=== PATIENT | female | born 1950 | race Hispanic/Latino ===

== ENCOUNTER 2017-11-14 02:50 | Emergency (ER) | payer BC, OTHER ==
[2017-11-14] MEDS ORDERED: HYDROCODONE/APAP 5/325 MG TAB ONE (03:05)
[2017-11-14] MEDS ORDERED: TETANUS & DIPHTHERIA TOX,ADULT 0.5 ML VIAL ONE (03:06)
--- NOTE | 2017-11-14 05:26 | ER ---
Nurse's Notes [facility] Name: Jessika Rolon Age: 67 yrs Sex: Female : 1950 Arrival Date: 11/14/2017 Time: 02:54 Bed 4 Private MD: Diagnosis: Contusion of right knee;Chest wall contusion Presentation: 11/14 02:54 Presenting complaint: EMS states: they were toned out for report of pt falling in bb driveway denies LOC. Transition of care: patient was not received from another setting of care. Onset of symptoms was November 14, 2017. Initial Sepsis Screen: Does the patient meet any 2 criteria? No. Patient's initial sepsis screen is negative. Does the patient have a suspected source of infection? No. Patient's initial sepsis screen is negative. Care prior to arrival: None. 02:54 Method Of Arrival: EMS: [facility] 02:54 Acuity: ZOLTAN 3 bb Historical: - Allergies: 02:58 Morphine; bb - Home Meds: 02:58 Aspirin Oral [Active]; Lantus Sub-Q [Active]; losartan Oral [Active]; Metformin Oral bb [Active]; sertraline Oral [Active]; Victoza 2-Tien subcutaneous [Active]; glaucoma drops [Active]; - PMHx: 02:58 Diabetes - IDDM; Hypertension; glaucoma; bb - PSHx: 02:58 Cholecystectomy; Hysterectomy; bb - Immunization history:: Adult Immunizations unknown, Last tetanus immunization: unknown. - Social history:: Smoking status: Patient/guardian denies using tobacco, Patient/guardian denies using alcohol, street drugs. - Family history:: not pertinent. - Hospitalizations: : No recent hospitalization is reported. Screenin:43 Abuse screen: Denies threats or abuse. Denies injuries from another. Nutritional tl1 screening: No deficits noted. Tuberculosis screening: No symptoms or risk factors identified. Fall Risk Assessment: 03:40 General: Appears uncomfortable, Behavior is calm, cooperative, appropriate for age. tl1 Pain: Complains of pain in right elbow. Neuro: Level of Consciousness is awake, alert, obeys commands, Oriented to person, place, time, situation. Cardiovascular: Denies chest pain, Capillary refill < 3 seconds Patient's skin is warm and dry. Respiratory: Airway is patent Trachea midline Respiratory effort is even, unlabored, Breath sounds are clear bilaterally. tenderness noted to left side rib cage. GI: Abdomen is non-distended, Bowel sounds present X 4 quads. Abd is soft and non tender X 4 quads. : No signs and/or symptoms were reported regarding the genitourinary system. EENT: No signs and/or symptoms were reported regarding the EENT system. Derm: Wound noted right knee Wound is abrasions noted to right elbow and right knee. Injury Description: Abrasion sustained to right knee. 04:03 Reassessment: Patient and/or family updated on plan of care and expected duration. Pain tl1 level reassessed. Patient is alert, oriented x 3, equal unlabored respirations, skin warm/dry/pink. Respiratory: Airway is patent Trachea midline Respiratory effort is even, unlabored, Respiratory pattern is regular, Breath sounds are clear bilaterally. Vital Signs: 02:58 BP 133 / 85; Pulse 86; Resp 18 S; Temp 97.6(O); Pulse Ox 97% on R/A; Weight 86.18 kg bb (R); Height 5 ft. 9 in. (175.26 cm) (R); Pain 5/10; 03:47 BP 156 / 97; Pulse 91; Resp 19; Pulse Ox 100% on R/A; Pain 4/10; tl1 05:05 BP 153 / 79; Pulse 79; Resp 18; Pulse Ox 99% on R/A; mt 02:58 Body Mass Index 28.06 (86.18 kg, 175.26 cm) bb ED Course: 02:54 Patient arrived in ED. em1 02:54 Elias Josue MD is Attending Physician. rn 02:56 Triage completed. bb 02:58 Arm band placed on Patient placed in an exam room, on a stretcher, on pulse oximetry. bb 02:58 Patient has correct armband on for positive identification. Placed in gown. Bed in low tl1 position. Call light in reach. Side rails up X2. Adult w/ patient. 03:03 Brigitte Nava, RN is Primary Nurse. tl1 03:20 Patient moved to radiology via wheelchair. kw 03:20 X-ray completed. Patient tolerated procedure well. kw 03:20 Patient moved back from radiology. kw 03:20 XRAY Knee RIGHT 3 view In Process Unspecified. EDMS 03:20 XRAY Chest Pa And Lat (2 Views) In Process Unspecified. EDMS 03:43 No provider procedures requiring assistance completed. Patient did not have IV access tl1 during this emergency room visit. 04:02 Wound care: to abrasion, located on right elbow and right knee was cleaned with tl1 Hibiclens, dressed with Neosporin, 4X4s, Kerlix. Administered Medications: 03:08 Drug: [place] 5 mg-325 mg 1 tabs Route: PO; tl1 05:33 Follow up: Response: No adverse reaction; Marked relief of symptoms; Pain is decreased tl1 03:09 Drug: Tetanus-Diphtheria Toxoid Adult 0.5 ml {Disease Management Nurse: [employer]. Exp: tl1 02/06/2020. Lot #: [id number]. } Route: IM; Site: right deltoid; 05:33 Follow up: Response: No adverse reaction; No change in condition tl1 05:33 Drug: Motrin 600 mg Route: PO; tl1 05:40 Follow up: Response: No adverse reaction; Medication administered at discharge. tl1 Outcome: 05:25 Discharge ordered by . rn 05:39 Discharged to home via wheelchair, with family. tl1 05:39 Condition: stable 05:39 Discharge instructions given to patient, family, Instructed on discharge instructions, follow up and referral plans. medication usage, Demonstrated understanding of instructions, follow-up care, medications, wound care, Prescriptions given X 1. 05:40 Patient left the ED. tl1 Signatures: Dispatcher [employer] Smiley Rushing RN RN bb Nieto, Roman, MD MD rn Martinez, Eric 1 Noa Patricia Tonya RN RN tl1 Tia Kaminski ak
--- NOTE | 2017-11-14 05:26 | EDPHYS ---
Physician Documentation [facility] Name: Jessika Rolon Age: 67 yrs Sex: Female : 1950 Arrival Date: 11/14/2017 Time: 02:54 Bed 4 Private MD: ED Physician Elias Josue HPI: 11/14 03:36 This 67 yrs old Female presents to ER via EMS with complaints of chest pain. rn 03:36 The patient or guardian reports chest pain that is located primarily in the anterior rn chest wall. Onset: The symptoms/episode began/occurred just prior to arrival. The pain does not radiate. Associated signs and symptoms: Pertinent negatives: abdominal pain, diaphoresis, headache, lightheadedness, palpitations, shortness of breath, syncope, vomiting. The chest pain is described as sharp. Duration: The patient or guardian reports a single episode. Modifying factors: The symptoms are alleviated by remaining still, the symptoms are aggravated by breathing, deep breath, palpation of area. Severity of pain: At its worst the pain was mild in the emergency department the pain is unchanged. The patient has not experienced similar symptoms in the past. Reports walking out onto driveway, fell, tripped, no head injury, no loc, remembers all events, reports mild pain to right elbow, right knee, and left bottom ribs. No sob. Not on blood thinners. . Historical: - Allergies: 02:58 Morphine; bb - Home Meds: 02:58 Aspirin Oral [Active]; Lantus Sub-Q [Active]; losartan Oral [Active]; Metformin Oral bb [Active]; sertraline Oral [Active]; Victoza 2-Tien subcutaneous [Active]; glaucoma drops [Active]; - PMHx: 02:58 Diabetes - IDDM; Hypertension; glaucoma; bb - PSHx: 02:58 Cholecystectomy; Hysterectomy; bb - Immunization history:: Adult Immunizations unknown, Last tetanus immunization: unknown. - Social history:: Smoking status: Patient/guardian denies using tobacco, Patient/guardian denies using alcohol, street drugs. - Family history:: not pertinent. - Hospitalizations: : No recent hospitalization is reported. ROS: 03:36 Constitutional: Negative for fever, chills, and weight loss, Eyes: Negative for injury, rn pain, redness, and discharge, Neck: Negative for injury, pain, and swelling, Cardiovascular: Negative for palpitations, and edema, Respiratory: Negative for shortness of breath, cough, wheezing, and pleuritic chest pain, Abdomen/GI: Negative for abdominal pain, nausea, vomiting, diarrhea, and constipation, Back: Negative for injury and pain, MS/Extremity: + abrasion to right elbow and right knee Skin: Negative for injury, rash, and discoloration, Neuro: Negative for headache, weakness, numbness, tingling, and seizure. Exam: 03:36 Constitutional: This is a well developed, well nourished patient who is awake, alert, rn and in no acute distress. Head/Face: Normocephalic, atraumatic. Eyes: Pupils equal round and reactive to light, extra-ocular motions intact. Lids and lashes normal. Conjunctiva and sclera are non-icteric and not injected. Cornea within normal limits. Periorbital areas with no swelling, redness, or edema. Neck: Trachea midline, no thyromegaly or masses palpated, and no cervical lymphadenopathy. Supple, full range of motion without nuchal rigidity, or vertebral point tenderness. No Meningismus. Chest/axilla: Normal chest wall appearance and motion. + mild tenderness left anterior/inferior chest wall, no crepitus, no ecchymosis Cardiovascular: Regular rate and rhythm with a normal S1 and S2. No gallops, murmurs, or rubs. Normal PMI, no JVD. No pulse deficits. Respiratory: Lungs have equal breath sounds bilaterally, clear to auscultation and percussion. No rales, rhonchi or wheezes noted. No increased work of breathing, no retractions or nasal flaring. Abdomen/GI: Soft, non-tender, with normal bowel sounds. No distension or tympany. No guarding or rebound. No evidence of tenderness throughout. Back: No spinal tenderness. No costovertebral tenderness. Full range of motion. MS/ Extremity: Pulses equal, no cyanosis. Neurovascular intact. Full, normal range of motion. Equal circumference. Neuro: Awake and alert, GCS 15, oriented to person, place, time, and situation. Cranial nerves II-XII grossly intact. Motor strength 5/5 in all extremities. Sensory grossly intact. Vital Signs: 02:58 BP 133 / 85; Pulse 86; Resp 18 S; Temp 97.6(O); Pulse Ox 97% on R/A; Weight 86.18 kg bb (R); Height 5 ft. 9 in. (175.26 cm) (R); Pain 5/10; 03:47 BP 156 / 97; Pulse 91; Resp 19; Pulse Ox 100% on R/A; Pain 4/10; tl1 05:05 BP 153 / 79; Pulse 79; Resp 18; Pulse Ox 99% on R/A; mt 02:58 Body Mass Index 28.06 (86.18 kg, 175.26 cm) bb MDM: 02:54 Patient medically screened. rn 05:24 Differential diagnosis: Blunt Chest Trauma Chest Wall Contusion Pneumothorax Pulmonary rn Contusion Rib Fracture. Data reviewed: vital signs, nurses notes, radiologic studies, plain films, and as a result, I will discharge patient. Counseling: I had a detailed discussion with the patient and/or guardian regarding: the historical points, exam findings, and any diagnostic results supporting the discharge/admit diagnosis, radiology results, the need for outpatient follow up, to return to the emergency department if symptoms worsen or persist or if there are any questions or concerns that arise at home. Special discussion: I discussed with the patient/guardian in detail that at this point there is no indication for admission to the hospital. It is understood, however, that if the symptoms persist or worsen the patient needs to return immediately for re-evaluation. 11/14 02:57 Order name: XRAY Knee RIGHT 3 view rn 11/14 02:57 Order name: XRAY Chest Pa And Lat (2 Views) rn Administered Medications: 03:08 Drug: [place] 5 mg-325 mg 1 tabs Route: PO; tl1 05:33 Follow up: Response: No adverse reaction; Marked relief of symptoms; Pain is decreased tl1 03:09 Drug: Tetanus-Diphtheria Toxoid Adult 0.5 ml {[employer] Miller: [employer]. Exp: tl1 02/06/2020. Lot #: [id number]. } Route: IM; Site: right deltoid; 05:33 Follow up: Response: No adverse reaction; No change in condition tl1 05:33 Drug: Motrin 600 mg Route: PO; tl1 05:40 Follow up: Response: No adverse reaction; Medication administered at discharge. tl1 Disposition: 11/14/17 05:25 Discharged to Home. Impression: Contusion of right knee, Chest wall contusion. - Condition is Stable. - Discharge Instructions: Contusion, Chest Contusion. - Prescriptions for Tylenol- Codeine #3 300-30 mg Oral Tablet - take 1 tablet by ORAL route every 6 hours As needed; 20 tablet. - Medication Reconciliation Form, Thank You Letter, Antibiotic Education, Prescription Opioid Use form. - Follow up: Private Physician; When: As needed; Reason: Recheck today's complaints, Re-evaluation by your physician. - Problem is new. - Symptoms have improved. Signatures: Dispatcher [employer] EDMS Smiley Sutherland RN RN Elias Eller MD MD rn Lasagna, Tonya, RN RN tl1 Corrections: (The following items were deleted from the chart) 05:40 05:25 11/14/2017 05:25 Discharged to Home. Impression: Contusion of right knee; Chest tl1 wall contusion. Condition is Stable. Forms are Medication Reconciliation Form, Thank You Letter, Antibiotic Education, Prescription Opioid Use. Follow up: Private Physician; When: As needed; Reason: Recheck today's complaints, Re-evaluation by your physician. Problem is new. Symptoms have improved. rn
[2017-11-14] MEDS ORDERED: IBUPROFEN 200 MG TAB PO ONE (05:32)
--- NOTE | 2017-11-14 08:29 | RAD REPORT ---
EXAM DESCRIPTION: RAD - Knee Right 3 View - 11/14/2017 3:25 am CLINICAL HISTORY: Fall, knee pain COMPARISON: None. FINDINGS: Lateral joint compartment space narrowing is present. Subtle subcortical area of linear sc lerosis is seen in the lateral tibial plateau. No definitive fracture is seen. No significant joint f luid present. If the patient has continued or progressive knee pain, MR imaging of the knee would be recommended.
--- NOTE | 2017-11-14 08:30 | RAD REPORT ---
EXAM DESCRIPTION: RAD - Chest Pa And Lat (2 Views) - 11/14/2017 3:25 am CLINICAL HISTORY: Fall, trauma, chest pain COMPARISON: 12/06/2016 FINDINGS: The lungs are clear. The heart is upper limit of normal in size. No displaced fractures. IMPRESSION: No acute or concerning finding suspected.
== END 2017-11-14 05:40 | disposition home or self-care (01) ==
LOC: ER 02:50
DX: S80.01XA Contusion of right knee, initial encounter (principal); S20.219A Contusion of unspecified front wall of thorax, initial encounter; W01.0XXA Fall on same level from slipping, tripping and stumbling without subsequent striking against object, initial encounter; Y93.01 Activity, walking, marching and hiking; Y92.009 Unspecified place in unspecified non-institutional (private) residence as the place of occurrence of the external cause; I10 Essential (primary) hypertension; E11.9 Type 2 diabetes mellitus without complications
CPT/HCPCS: 71046; 90714; 99284

== ENCOUNTER 2018-12-31 21:55 | Emergency (ER) | payer OTHER ==
--- OUTSIDE RECORDS SUMMARY | 2018-12-31 21:56 | XMS REPORT ---
:1950 [facility] Address [address] [place] [address] Dr. Andino [address] [place] [id number] Care Team Providers Name Role Phone Unavailable Unavailable Unavailable Problems This patient has no known problems. Allergies, Adverse Reactions, Alerts This patient has no known allergies or adverse reactions. Medications This patient has no known medications.
[2018-12-31] MEDS ORDERED: TETRACAINE HCL 0.5% 4ML OPTH ONE ×2 (22:26→22:29)
[2018-12-31] MEDS ORDERED: FLUORESCEIN SODIUM 1 MG/WRAP ONE (22:26)
[2018-12-31] MEDS ORDERED: TETANUS & DIPHTHERIA TOX,ADULT 0.5 ML VIAL ONE (22:30)
--- NOTE | 2018-12-31 22:35 | ER ---
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 tl2 No redness noted, pt denies pain at this time. Transition of care: patient was not received from another setting of care. Mechanism of Injury: dog scratched eye. The patient denies any loss of vision. Onset of symptoms was December 31, 2018 at 21:00. Risk Assessment: Do you want to hurt yourself or someone else? Patient reports no desire to harm self or others. Initial Sepsis Screen: Does the patient meet any 2 criteria? No. Patient's initial sepsis screen is negative. Does the patient have a suspected source of infection? No. Patient's initial sepsis screen is negative. Care prior to arrival: None. 22:04 Method Of Arrival: Ambulatory tl2 22:04 Acuity: ZOLTAN 4 tl2 Triage Assessment: 22:06 EENT: Sclera/Cornea w/ abrasion noted on outer aspect of conjuctiva of right eye, iris tl2 of right eye and inner aspect of conjuctiva of right eye. Historical: - Allergies: 22:06 Morphine; tl2 - Home Meds: 22:06 Aspirin Oral [Active]; losartan Oral [Active]; Metformin Oral [Active]; sertraline Oral tl2 [Active]; glaucoma drops [Active]; Victoza 2-Tien subcutaneous [Active]; Levemir 100 unit/mL subcutaneous soln [Active]; - PMHx: 22:06 Diabetes - IDDM; Glaucoma; Hypertension; tl2 - PSHx: 22:06 Cholecystectomy; Hysterectomy; tl2 - Immunization history:: Adult Immunizations up to date. - Social history:: Smoking status: Patient/guardian denies using tobacco. - Ebola Screening: : No symptoms or risks identified at this time. Screenin:07 Abuse screen: Denies threats or abuse. Nutritional screening: No deficits noted. tl2 Tuberculosis screening: No symptoms or risk factors identified. Fall Risk None identified. Assessment: 22:22 General: Appears uncomfortable, Behavior is calm, cooperative, appropriate for age. ea Pain: Complains of pain in right eye. Neuro: Level of Consciousness is awake, alert, obeys commands, Oriented to person, place, time, situation. Cardiovascular: Patient's skin is warm and dry. Respiratory: Airway is patent Respiratory effort is even, unlabored, Respiratory pattern is regular, symmetrical. EENT: Eyes are tearing on outer aspect of conjuctiva of right eye and inner aspect of conjuctiva of right eye Sclera/Cornea are reddened in outer aspect of conjuctiva of right eye. Derm: Skin is pink, warm \T\ dry. 23:05 Reassessment: Patient appears in no apparent distress at this time. Patient and/or rr5 family updated on plan of care and expected duration. Pain level reassessed. Patient is alert, oriented x 3, equal unlabored respirations, skin warm/dry/pink. discharge instruction given and explained without complaints made. Patient states feeling better. Patient states symptoms have improved. Critical care time stopped, patient has stabilized. Vital Signs: 22:06 BP 182 / 76; Pulse 95; Resp 18; Temp 98.1(O); Pulse Ox 96% on R/A; Weight 81.19 kg; tl2 Height 5 ft. 9 in. (175.26 cm); Pain 0/10; 22:53 BP 151 / 77; Pulse 82; Resp 17; Pulse Ox 100% ; rr5 22:06 Body Mass Index 26.43 (81.19 kg, 175.26 cm) tl2 Visual Acuity: 22:15 Left Eye Visual acuity 20/40, Pupil size 2 mm, ; Right Eye Visual acuity 20/30, Pupil ea size 2 mm, ; Both Eyes Visual acuity 20/30; Without Lenses; ED Course: 21:58 Patient arrived in ED. mr 21:58 Ish Jimenez MD is Private Physician. mr 22:00 Mariano Dahl NP is PHCP. pm1 22:00 Roberth Buckley MD is Attending Physician. pm1 22:05 Triage completed. tl2 22:06 Arm band placed on right wrist. tl2 22:07 Katrin Perez RN is Primary Nurse. ea 22:10 Patient has correct armband on for positive identification. rr5 23:05 No provider procedures requiring assistance completed. Patient did not have IV access rr5 during this emergency room visit. Administered Medications: 21:45 Drug: traMADol 50 mg Route: PO; rr5 22:53 Follow up: 2245 not 2145 time of administration. rr5 22:17 Drug: Tetracaine Drops 0.5 % 1 drops Route: Ophthalmic; Site: right eye; ea 22:18 Drug: Tetanus-Diphtheria Toxoid Adult 0.5 ml {Director Of Institutional Research: [employer]. Exp: rr5 09/26/2020. Lot #: [id number]. } Route: IM; Site: right deltoid; 23:05 Follow up: Response: No adverse reaction rr5 22:41 Not Given (Other Intervention Used; not available): Tobramycin Drops (0.3 %) 2 drops rr5 Ophthalmic once 22:43 CANCELLED (Other Intervention Used): Gentamicin Ointment 0.3 % 0.5 inches Ophthalmic rr5 once; Right Eye 22:50 Drug: Gentamicin Drops 0.3 % 2 drops Route: Ophthalmic; Site: right eye; rr5 23:05 Follow up: Response: No adverse reaction rr5 Intake: Outcome: 22:35 Discharge ordered by MD. pm1 23:05 Discharged to home ambulatory, with family. rr5 23:05 Condition: stable 23:05 Discharge instructions given to patient, Instructed on discharge instructions, follow up and referral plans. medication usage, Demonstrated understanding of instructions, follow-up care, medications, Prescriptions given X 2. 23:08 Patient left the ED. rr5 Signatures: Betty Rolon NabilaMariano, MIGEL FIRE EXTINGUISHER REPAIRER INSPECTOR pm1 Brenda Whalen RN RN tl2 Katrin Perez RN RN Dandy Mari RN RN rr5
--- NOTE | 2018-12-31 22:35 | EDPHYS ---
Physician Documentation [facility] Name: Jessika Rolon Age: 68 yrs Sex: Female : 1950 Arrival Date: 12/31/2018 Time: 21:58 Bed 5 Private MD: Ish Jimenez ED Physician Roberth Buckley HPI: 12/31 22:33 This 68 yrs old Female presents to ER via Ambulatory with complaints of Eye pm1 Injury. 22:33 The patient is experiencing redness, The patient sustained a scratch, to the right eye, pm1 caused by her pet dog jumped on her and scratched her right eye. Onset: The symptoms/episode began/occurred just prior to arrival. Duration: the symptoms are continuous. Aggravated by nothing. Alleviated by nothing. Associated signs and symptoms: Pertinent negatives: visual disturbance. Patient does not utilize any form of vision correction. Severity of symptoms: in the emergency department the symptoms are unchanged Pain is currently a 0 / 10. The patient has not experienced similar symptoms in the past. The patient has not recently seen a physician. Historical: - Allergies: 22:06 Morphine; tl2 - Home Meds: 22:06 Aspirin Oral [Active]; losartan Oral [Active]; Metformin Oral [Active]; sertraline Oral tl2 [Active]; glaucoma drops [Active]; Victoza 2-Tien subcutaneous [Active]; Levemir 100 unit/mL subcutaneous soln [Active]; - PMHx: 22:06 Diabetes - IDDM; Glaucoma; Hypertension; tl2 - PSHx: 22:06 Cholecystectomy; Hysterectomy; tl2 - Immunization history:: Adult Immunizations up to date. - Social history:: Smoking status: Patient/guardian denies using tobacco. - Ebola Screening: : No symptoms or risks identified at this time. ROS: 22:33 ENT: Negative for injury, pain, and discharge, Neck: Negative for injury, pain, and pm1 swelling, Cardiovascular: Negative for chest pain, palpitations, and edema, Respiratory: Negative for shortness of breath, cough, wheezing, and pleuritic chest pain, Abdomen/GI: Negative for abdominal pain, nausea, vomiting, diarrhea, and constipation, Back: Negative for injury and pain, MS/Extremity: Negative for injury and deformity, Skin: Negative for injury, rash, and discoloration, Neuro: Negative for headache, weakness, numbness, tingling, and seizure. 22:33 Eyes: Positive for foreign body sensation, redness, Negative for blurry vision, discharge, matting, pain, swelling, vision loss, visual disturbance. Exam: 22:33 Visual Acuity: I have reviewed the nursing documentation. pm1 22:33 Constitutional: This is a well developed, well nourished patient who is awake, alert, and in no acute distress. Head/Face: Normocephalic, atraumatic. 22:33 ENT: Nares patent. No nasal discharge, no septal abnormalities noted. Tympanic membranes are normal and external auditory canals are clear. Oropharynx with no redness, swelling, or masses, exudates, or evidence of obstruction, uvula midline. Mucous membranes moist. Neck: Trachea midline, no thyromegaly or masses palpated, and no cervical lymphadenopathy. Supple, full range of motion without nuchal rigidity, or vertebral point tenderness. No Meningismus. Chest/axilla: Normal chest wall appearance and motion. Nontender with no deformity. No lesions are appreciated. Cardiovascular: Regular rate and rhythm with a normal S1 and S2. No gallops, murmurs, or rubs. Normal PMI, no JVD. No pulse deficits. Respiratory: Lungs have equal breath sounds bilaterally, clear to auscultation and percussion. No rales, rhonchi or wheezes noted. No increased work of breathing, no retractions or nasal flaring. Abdomen/GI: Soft, non-tender, with normal bowel sounds. No distension or tympany. No guarding or rebound. No evidence of tenderness throughout. Back: No spinal tenderness. No costovertebral tenderness. Full range of motion. Skin: Warm, dry with normal turgor. Normal color with no rashes, no lesions, and no evidence of cellulitis. MS/ Extremity: Pulses equal, no cyanosis. Neurovascular intact. Full, normal range of motion. 22:33 Eyes: Periorbital structures: appear normal, Pupils: no acute changes, Extraocular movements: no acute changes, Conjunctiva: injected, in the right eye, subconjunctival hemorrhage(s), seen in the right eye, at 9 o'clock, Corneas: abrasion, is not appreciated, a fluorescein strip employed to appreciate the findings, Sclera: abrasion, of the lateral aspect of conjunctiva of right eye at 9 o'clock, Lids and lashes: appear normal. 22:33 Neuro: Orientation: is normal, Motor: is normal, moves all fours, Sensation: is normal, no obvious gross deficits, Gait: is steady, at a normal pace, without difficulty. Vital Signs: 22:06 BP 182 / 76; Pulse 95; Resp 18; Temp 98.1(O); Pulse Ox 96% on R/A; Weight 81.19 kg; tl2 Height 5 ft. 9 in. (175.26 cm); Pain 0/10; 22:53 BP 151 / 77; Pulse 82; Resp 17; Pulse Ox 100% ; rr5 22:06 Body Mass Index 26.43 (81.19 kg, 175.26 cm) tl2 Visual Acuity: 22:15 Left Eye Visual acuity 20/40, Pupil size 2 mm, ; Right Eye Visual acuity 20/30, Pupil ea size 2 mm, ; Both Eyes Visual acuity 20/30; Without Lenses; MDM: 22:03 Patient medically screened. pm1 22:30 Data reviewed: vital signs. Data interpreted: Pulse oximetry: on room air is 96 %. pm1 Interpretation: normal. 22:33 Counseling: I had a detailed discussion with the patient and/or guardian regarding: the pm1 historical points, exam findings, and any diagnostic results supporting the discharge/admit diagnosis, the need for outpatient follow up, for definitive care, an opthalmologist, to return to the emergency department if symptoms worsen or persist or if there are any questions or concerns that arise at home. 12/31 22:10 Order name: Visual Acuity; Complete Time: 22:17 pm1 12/31 22:10 Order name: Eye Tray; Complete Time: 22:17 pm1 12/31 22:10 Order name: Fluoresene Opth strip; Complete Time: 22:17 pm1 Administered Medications: 21:45 Drug: traMADol 50 mg Route: PO; rr5 22:53 Follow up: 2244 not 2144 time of administration. rr5 22:17 Drug: Tetracaine Drops 0.5 % 1 drops Route: Ophthalmic; Site: right eye; ea 22:18 Drug: Tetanus-Diphtheria Toxoid Adult 0.5 ml {Osteopathic Neurologist: [employer]. Exp: rr5 09/26/2020. Lot #: [id number]. } Route: IM; Site: right deltoid; 23:05 Follow up: Response: No adverse reaction rr5 22:41 Not Given (Other Intervention Used; not available): Tobramycin Drops (0.3 %) 2 drops rr5 Ophthalmic once 22:43 CANCELLED (Other Intervention Used): Gentamicin Ointment 0.3 % 0.5 inches Ophthalmic rr5 once; Right Eye 22:50 Drug: Gentamicin Drops 0.3 % 2 drops Route: Ophthalmic; Site: right eye; rr5 23:05 Follow up: Response: No adverse reaction rr5 Disposition: 01/01 09:38 Co-signature as Attending Physician, Roberth Buckley MD I agree with the assessment and marlen plan of care. Disposition: 12/31/18 22:35 Discharged to Home. Impression: Injury of conjunctiva and corneal abrasion without foreign body, right eye, Conjunctival hemorrhage, right eye. - Condition is Stable. - Discharge Instructions: Corneal Abrasion, Subconjunctival Hemorrhage. - Prescriptions for Vigamox 0.5 % Ophthalmic Drops - instill 1 drop by OPHTHALMIC route every 8 hours for 7 days; 5 milliliter. Tramadol 50 mg Oral Tablet - take 1 tablet by ORAL route every 8 hours as needed; 12 tablet. - Medication Reconciliation Form, Thank You Letter, Antibiotic Education, Prescription Opioid Use form. - Follow up: Emergency Department; When: As needed; Reason: Worsening of condition. Follow up: Private Physician; When: 2 - 3 days; Reason: Recheck today's complaints, Continuance of care, Re-evaluation by your physician. - Problem is new. - Symptoms have improved. Signatures: Roberth Buckley MD MD cha Marinas, Patrick, NP CLIMATOLOGIST pm1 Brenda Whalen RN RN tl2 Katrin Perez RN RN ea Roque, Raymond RN RN rr5 Corrections: (The following items were deleted from the chart) 12/31 22:43 22:41 Gentamicin Ointment 0.3 % 0.5 inches Ophthalmic once; Right Eye ordered. rr5 rr5 23:08 22:35 12/31/2018 22:35 Discharged to Home. Impression: Injury of conjunctiva and rr5 corneal abrasion without foreign body, right eyeConjunctival hemorrhage, right eye. Condition is Stable. Forms are Medication Reconciliation Form, Thank You Letter, Antibiotic Education, Prescription Opioid Use. Follow up: Emergency Department; When: As needed; Reason: Worsening of condition. Follow up: Private Physician; When: 2 - 3 days; Reason: Recheck today's complaints, Continuance of care, Re-evaluation by your physician. Problem is new. Symptoms have improved. pm1
[2018-12-31] MEDS ORDERED: TOBRAMYCIN SULF 0.3% OPTH OINT ONE (22:47)
[2018-12-31] MEDS ORDERED: GENTAMICIN 0.3% OPTH DROP 5ML ONE (22:54)
[2018-12-31] MEDS ORDERED: TRAMADOL HCL 50 MG TAB ONE (22:59)
== END 2018-12-31 23:08 | disposition home or self-care (01) ==
LOC: ER 21:55
DX: H11.31 Conjunctival hemorrhage, right eye (principal); W54.1XXA Struck by dog, initial encounter; Y93.89 Activity, other specified; Y92.9 Unspecified place or not applicable; I10 Essential (primary) hypertension; E11.9 Type 2 diabetes mellitus without complications; Z23 Encounter for immunization; Z79.4 Long term (current) use of insulin; Z79.82 Long term (current) use of aspirin; Z88.5 Allergy status to narcotic agent
CPT/HCPCS: 90471; 90714; 99283